=== PATIENT | male | born 1975 | race Caucasian/White ===

== ENCOUNTER 2019-09-22 13:58 | Outpatient (RCR) | payer OTHER, SELFPAY ==
--- NOTE | 2019-09-22 14:59 | PTOPEVAL ---
Thank you for referring Simón Benitez to [facility]. Please review, sign, date and return this plan of care BETTY. I agree with and certify that the following plan of care is medically necessary. Referring Physician Date Admitting Provider: Attending Provider: Roxana Cabello, INSPECTOR BOILER Referring Provider: *PT Outpatient Evaluation Start: 09/22/19 14:08 Freq: Status: Active Protocol: Document 09/22/19 14:09 JUAN (Rec: 09/22/19 14:44 Radha [id number]) Therapy Assessment Status Assessment Status Assessment Status Evaluation Evaluation Information Problem Diagnosis lumbar spondylosis Onset 08/03/19 Additional Evaluation Detail oswestry = 54% Subjective Information patient reports he has been Query Text:As Reported By Patient/ having pain in the low back Family since around 2003. 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 he reports he has been having back pain ever since then. he reports he has not worked for years. he reports he has increased pain with walking long distances, lifting moderate to heavy objects, bending over repetitively. he reports he does have pain down the L LE that has been going on for 3-4 years. he reports he is starting to lose stability in the L LE. Prior Level of Function Comments Additional Prior Level of Function patient reports he has been Comments declining physically since his injury back in 2003. he reports worsening strength and mobility over the past few years. Pain Assessment Timing of Pain Assessment Timing of Pain Assessment Assessment Pain Scale Pain Scale Used Numeric (1 - 10) Self Report Pain Assessment Lower Back Reported Pain Level 2 Pain Description Stabbing,Tightness Pain Radiation Left Leg,Right Leg Pain Frequency Acute,Chronic,Continuous Lowest Pain Intensity 2 Greatest Pain Intensity 10 Pain Aggravating Factors Exercise/Activity,Lifting, Prolonged Position,Walking, Weight Bearing/Standing Pain Score Pain Score 2: Self Report Cervical and Lumbar ROM Lumbar R
--- NOTE | 2019-10-10 14:40 | PCPTNOTE ---
10/10/19-pt had to cancel this week secondary to no childcare. -
== END 2019-11-09 09:04 | disposition home or self-care (01) ==
LOC: CHSPT 13:58
PROVIDERS: PCP Nurse Practitioner Adult Health; Visit Provider Nurse Practitioner Adult Health
DX: M47.26 Other spondylosis with radiculopathy, lumbar region (principal)
CPT/HCPCS: 97014; 97110; 97161; G0283

== ENCOUNTER 2020-03-25 13:50 | Emergency (ER) | payer OTHER, SELFPAY ==
[2020-03-25 13:56] VITALS: BP 141/78; PULSE 67; RESP 18; TEMP 36.9; O2SAT 100
--- NOTE | 2020-03-25 13:59 | ED.WOUNDLAC ---
HPI - Wound/Laceration General Chief Complaint: Wound/Laceration Stated Complaint: cut to right thumb Time Seen by Provider: 03/25/20 13:59 Source: patient and RN notes reviewed History of Present Illness HPI narrative: Patient is a 44-year-old male who presents the urgent care with complaints of a laceration to the right thumb. 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 Patient states that the wood director of corporate sponsorships slipped and he is unsure of exactly where he hit the thumb. Patient denies cleaning the wound prior to arrival. States that he is not up-to-date on his tetanus. No other acute complaints or injuries. No acute distress noted. Patient aware of the plan of care. Some parts of this dictation were generated by voice recognition software and may contain typographical and/or grammatical inaccuracies. Related Data Home Medications Medication Instructions Recorded Confirmed amitriptyline 10 mg PO DAILY 03/25/20 03/25/20 amlodipine 10 mg PO DAILY 03/25/20 03/25/20 atenolol 03/25/20 baclofen mg 03/25/20 cyclobenzaprine mg 03/25/20 diazepam 03/25/20 03/25/20 diclofenac sodium PO 03/25/20 duloxetine mg PO 03/25/20 gabapentin 03/25/20 glimepiride mg 03/25/20 hydrochlorothiazide 03/25/20 hydroxyzine HCl 03/25/20 lisinopril 03/25/20 omeprazole 03/25/20 omeprazole 03/25/20 ropinirole mg 03/25/20 sitagliptin [Januvia] mg 03/25/20 testosterone cypionate mg 03/25/20 Allergies Allergy/AdvReac Type Severity Reaction Status Date / Time eucalyptus AdvReac Intermediate Verified 08/06/15 13:28 Bleach (Sodium Hypochlorite) AdvReac Unknown Verified 08/06/15 13:28 OTC NSAID AdvReac Unknown RACING Uncoded 09/19/14 16:32 HEART Review of Systems Review of Systems: Narrative: CONSTITUTIONAL: Denies fever, chills, or sweats. EYES: Denies visual changes, redness, or discharge. ENT: Denies rhinorrhea, congestion, sore throat, or otalgia. CARDIOVASCULAR: Denies chest pain, palpitations, or edema. RESPIRATORY: Denies cough or dyspnea. GASTROINTESTINAL: Denies abdominal pain, nausea, vomiting, or diarrhea. GENITOURINARY: Denies dysuria or hematuria. SKIN: Reports of a laceration to the right thumb MUSCULOSKELETAL: Denies back pain, joint pain, or myalgia. NEUROLOGIC: Denies headache, numbness, or weakness. All other systems reviewed are negative, except as documented in HPI. PMFSH Social History Social History Gender identity (if verbalized by the patient): Male Comments At the time of my signature, I reviewed and agree with the nursing past medical, surgical, social, and family history. There is no relevant family history pertinent to the patient complaint. Exam Narrative: Exam Narrative: GENERAL: This is a well-nourished, well-developed patient, in no apparent distress. HEAD: normocephalic, atraumatic. EYES: PERRL. Sclera clear/white. Vision is grossly intact. EARS: External ears normal NOSE: External nose normal with no obvious nasal discharge, nares without redness, no rhinorrhea. THROAT: Mucous membranes moist NECK: Neck supple SKIN: 1 cm linear noncomplicated puncture/laceration just proximal to the MCP of the right thumb. Bleeding controlled prior to arrival. Warm, intact with no suspicious lesions or rash, good texture and turgor. NEURO: awake, alert, and oriented to person, place and time. There were no obvious focal neurologic abnormalities. EXTREMITIES: No clubbing, cyanosis, or edema. Course Vital Signs Vital signs: Vital Signs Temperature 98.4 F 03/25/20 13:56 Pulse Rate 67 03/25/20 13:56 Respiratory Rate 18 03/25/20 13:56 Blood Pressure 141/78 H 03/25/20 13:56 Pulse Oximetry 100 03/25/20 13:56 Temperature 98.4 F 03/25/20 13:56 Pulse Rate 67 03/25/20 13:56 Respiratory Rate 18 03/25/20 13:56 Blood Pressure 141/78 H 03/25/20 13:56 Pulse Oximetry 100 03/25/20 13:56 Reviewed-patient is informed that they may have pre-hypertension o
[2020-03-25] MEDS: TETANUS,DIPHTHERIA,AC PERTUSSIS ADULT (0.5 ML) BOOSTRIX IM (14:22)
== END 2020-03-25 14:48 | disposition home or self-care (01) ==
PROVIDERS: Emergency Provider Nurse Practitioner Family; PCP Physician Assistant
DX: S61.011A Laceration without foreign body of right thumb without damage to nail, initial encounter (principal); X58.XXXA Exposure to other specified factors, initial encounter; Z23 Encounter for immunization; E78.00 Pure hypercholesterolemia, unspecified; I10 Essential (primary) hypertension; K21.9 Gastro-esophageal reflux disease without esophagitis; E11.9 Type 2 diabetes mellitus without complications
CPT/HCPCS: 12001; 90471; 90715; 99212; G0463

== ENCOUNTER 2020-05-27 16:21 | Outpatient (RCR) | payer OTHER, SELFPAY ==
--- NOTE | 2020-05-27 17:14 | PTOPEVAL ---
Thank you for referring Simón Benitez to [facility].? The patient is scheduled to be seen for therapy? ____x/week for ___ weeks. Please review, sign, date and return this plan of care BETTY. I agree with and certify that the following plan of care is medically necessary. Referring Physician Date Admitting Provider: Attending Provider: Roxana Cabello, HEAD ATHLETIC TRAINER Referring Provider: *PT Outpatient Evaluation Start: 05/27/20 16:37 Freq: Status: Active Protocol: Document 05/27/20 16:38 [facility] (Rec: 05/27/20 17:13 [facility] [id number]) Therapy Assessment Status Assessment Status Assessment Status Evaluation Outpatient Past Medical History Cardiovascular History Hx Hypercholesterolemia Yes Hx Hypertension Yes Gastrointestinal History Hx Gastroesophageal Reflux Disease Yes Musculoskeletal History Hx Back Pain Yes Hx Other Musculoskeletal Disorders Yes: neck pain Endocrine History Hx Diabetes Yes Reproductive History Hx Other Reproductive Disorders Yes: low testosterone Pain History Has Past Pain Affected Your Daily Life Yes Evaluation Information Problem Diagnosis cervicalgia Onset 05/22/20 Additional Evaluation Detail ndi = 48% functionally declined Subjective Information patient reports he has had Query Text:As Reported By Patient/ pain for years. he reports Family really noticing pain going back to 2014. he reports he has not been to work since 2016. he reports he does not do much at home daily. he reports mostly light home care such as dishes and cleaning up rooms. he reports he does care for his kids daily. he reports he has increased pain in the neck with looking down, being on the phone, reading, and sitting watching TV for too long. he reports lately he has had increased pain with laying on his L side in bed. he reports he has pain down the L arm. he reports having an order for X-ray outstanding , but he has not been able to have this done yet. Prior Level of Function Comments Additional Prior Level of Function he reports no specific injury. Comments he reports he was tough as a kid
--- NOTE | 2020-05-27 17:17 | PTOPEVAL ---
Thank you for referring Simón Benitez to [facility].? The patient is scheduled to be seen for therapy? ____x/week for ___ weeks. Please review, sign, date and return this plan of care BETTY. I agree with and certify that the following plan of care is medically necessary. Referring Physician Date Admitting Provider: Attending Provider: Roxana Cabello, CONTROL ROOM AGENT Referring Provider: *PT Outpatient Evaluation Start: 05/27/20 16:37 Freq: Status: Active Protocol: Document 05/27/20 16:38 [facility] (Rec: 05/27/20 17:13 [facility] [id number]) Therapy Assessment Status Assessment Status Assessment Status Evaluation Outpatient Past Medical History Cardiovascular History Hx Hypercholesterolemia Yes Hx Hypertension Yes Gastrointestinal History Hx Gastroesophageal Reflux Disease Yes Musculoskeletal History Hx Back Pain Yes Hx Other Musculoskeletal Disorders Yes: neck pain Endocrine History Hx Diabetes Yes Reproductive History Hx Other Reproductive Disorders Yes: low testosterone Pain History Has Past Pain Affected Your Daily Life Yes Evaluation Information Problem Diagnosis cervicalgia Onset 05/22/20 Additional Evaluation Detail ndi = 48% functionally declined Subjective Information patient reports he has had Query Text:As Reported By Patient/ pain for years. he reports Family really noticing pain going back to 2014. he reports he has not been to work since 2016. he reports he does not do much at home daily. he reports mostly light home care such as dishes and cleaning up rooms. he reports he does care for his kids daily. he reports he has increased pain in the neck with looking down, being on the phone, reading, and sitting watching TV for too long. he reports lately he has had increased pain with laying on his L side in bed. he reports he has pain down the L arm. he reports having an order for X-ray outstanding , but he has not been able to have this done yet. Prior Level of Function Comments Additional Prior Level of Function he reports no specific injury. Comments he reports he was tough as a kid
--- NOTE | 2020-07-15 17:55 | PTOPEVAL ---
Thank you for referring Simón Benitez to [facility].? The patient is scheduled to be seen for therapy? ____x/week for ___ weeks. Please review, sign, date and return this plan of care BETTY. I agree with and certify that the following plan of care is medically necessary. Referring Physician Date Admitting Provider: Attending Provider: Roxana Cabello, ELEMENTARY ESL TEACHER Referring Provider: *PT Outpatient Evaluation Start: 05/27/20 16:37 Freq: Status: Active Protocol: Document 07/15/20 16:41 [facility] (Rec: 07/15/20 17:54 [facility] [id number]) Therapy Assessment Status Assessment Status Assessment Status Discharge Outpatient Past Medical History Cardiovascular History Hx Hypercholesterolemia Yes Hx Hypertension Yes Gastrointestinal History Hx Gastroesophageal Reflux Disease Yes Musculoskeletal History Hx Back Pain Yes Hx Other Musculoskeletal Disorders Yes: neck pain Endocrine History Hx Diabetes Yes Reproductive History Hx Other Reproductive Disorders Yes: low testosterone Pain History Has Past Pain Affected Your Daily Life Yes Evaluation Information Problem Diagnosis cervicalgia Onset 05/22/20 Subjective Information Patient states that since the Query Text:As Reported By Patient/ beginning of therapy he is Family about 20% improved. He is still unable to read for a long time, look down at his phone, continues to have a stabbing pain in the neck. He has been wearing glasses which he feels he is not straining as hard to read in turn not causing as much neck strain. Patient states he is going to call and get back in with his MD soon but she has been out of town. Pain Assessment Timing of Pain Assessment Timing of Pain Assessment Pre-Treatment Pain Scale Pain Scale Used Numeric (1 - 10) Self Report Pain Assessment Lower Back Reported Pain Level 5 Neck Reported Pain Level 3 Greatest Pain Intensity 6 Pain Score Pain Score 5,3: Self Report Interventions Used Interventions Used By Clinicians Activity or ADL's,Education, Electrical Stimulation, Exercise,Heat,Traction Cervical and Lumbar ROM Cervical ROM Cervical Flexion (0-60) 40 Query Text:Active in Degrees Cervical Extension (0-70) 25 Query Text:Active in Degrees Cervical Lateral
== END 2020-07-15 17:30 | disposition home or self-care (01) ==
LOC: CHSPT 16:21
PROVIDERS: PCP Nurse Practitioner Adult Health; Visit Provider Nurse Practitioner Adult Health
DX: M54.2 Cervicalgia (principal)
CPT/HCPCS: 97012; 97014; 97110; 97140; 97161; G0283

== ENCOUNTER 2020-12-02 19:54 | Emergency (ER) | payer OTHER, SELFPAY ==
--- NOTE | 2020-12-02 20:03 | ED.WOUNDLAC ---
HPI - Wound/Laceration General Chief Complaint: Skin/Abscess/Foreign Body Stated Complaint: right knee lac Time Seen by Provider: 12/02/20 20:00 Source: patient, RN notes reviewed and old records reviewed Mode of arrival: ambulatory Limitations: no limitations History of Present Illness HPI narrative: 45 year old male presents to express care with complaint of laceration to his right knee which occurred at 1905 this evening. He states that he was helping a friend move a dryer and it slipped and hit his right knee causing laceration to the anterior aspect of knee. Patient presents with bandaid to his right knee with no acute bleeding noted He has starburst type of laceration noted to his right knee. Patient reports that his last tetanus was last year. Onset (ago): minute(s) (45) Extremity Location: Right: knee (anterior aspect) Place: other Patient tetanus UTD: Yes Context: accidental Associated symptoms: pain Treatments prior to arrival: bandage Related Data Home Medications Medication Instructions Recorded Confirmed amitriptyline 10 mg PO DAILY 03/25/20 12/02/20 amlodipine 10 mg PO DAILY 03/25/20 12/02/20 atenolol 50 mg PO DAILY 03/25/20 12/02/20 baclofen 10 mg PO DAILY 03/25/20 12/02/20 cyclobenzaprine 10 mg PO DAILY 03/25/20 12/02/20 duloxetine 60 mg PO DAILY 03/25/20 12/02/20 gabapentin 600 mg PO DAILY 03/25/20 12/02/20 glimepiride 4 mg PO DAILY 03/25/20 12/02/20 hydrochlorothiazide 25 mg PO DAILY 03/25/20 12/02/20 hydroxyzine HCl 25 mg PO DAILY 03/25/20 12/02/20 lisinopril 40 mg PO DAILY 03/25/20 12/02/20 omeprazole 40 mg PO DAILY 03/25/20 12/02/20 ropinirole 1 mg PO DAILY 03/25/20 12/02/20 sitagliptin [Januvia] 100 mg PO DAILY 03/25/20 12/02/20 insulin glargine [Basaglar KwikPen 30 unit SUBCUT HS 12/02/20 12/02/20 U-100 Insulin] insulin lispro 1 unit SUBCUT PRN PRN 12/02/20 12/02/20 lovastatin 20 mg PO HS 12/02/20 12/02/20 Allergies Allergy/AdvReac Type Severity Reaction Status Date / Time metformin Allergy Difficulty Verified 12/02/20 20:06 Breathing eucalyptus AdvReac Intermediate Rash Verified 12/02/20 20:05 Bleach (Sodium Hypochlorite) AdvReac Unknown resp Verified 12/02/20 20:05 OTC NSAID AdvReac Unknown RACING Uncoded 12/02/20 20:05 HEART Review of Systems Review of Systems: Narrative: CONSTITUTIONAL: Denies fever, chills, or sweats. EYES: Denies visual changes, redness, or discharge. ENT: Denies rhinorrhea, congestion, sore throat, or otalgia. CARDIOVASCULAR: Denies chest pain, palpitations, or edema. RESPIRATORY: Denies cough or dyspnea. GASTROINTESTINAL: Denies abdominal pain, nausea, vomiting, or diarrhea. GENITOURINARY: Denies dysuria or hematuria. SKIN: Denies rash or itching. MUSCULOSKELETAL: Denies back pain, joint pain, or myalgia. NEUROLOGIC: Denies headache, numbness, or weakness. PSYCHIATRIC: Denies anxiety or depression. All systems reviewed & are unremarkable except as noted in HPI and below PMFSH Past Medical History Medical History (Updated 12/03/20 @ 20:21 by Sara Reyes NP) Back pain Diabetes Hyperlipidemia Hypertension Neck pain Penile abnormality reconstruction surgery X2 Restless leg syndrome Surgical History Surgical History (Updated 12/03/20 @ 20:14 by Sara Reyes NP) History of surgery on arm reconstruction surgery related to glass Social History Social History (Updated 12/03/20 @ 20:20 by Sara Reyes NP) Smoking status: Smoker, status unknown Additional smoking assessment comments: reported 2014 1 pack daily for 20 years Alcohol intake: unknown Substance use: never Living arrangements: with family Gender identity (if verbalized by the patient): Male Comments At time of signature, agree with nursing past medical, surgical, social and family history. There is no relevant family history pertinent to the presenting complaint Exam Narrative: Exam Narrative: GENERAL: Well-appearing, well-nourished,obese, and in no ac
[2020-12-02 20:05] VITALS: BP 147/68; PULSE 69; RESP 20; TEMP 36.7; O2SAT 99
[2020-12-02 20:15] VITALS: BP 147/68; PULSE 69; RESP 20; TEMP 36.7; O2SAT 99
== END 2020-12-02 20:45 | disposition home or self-care (01) ==
PROVIDERS: Emergency Provider Registered Nurse; PCP Physician Assistant
DX: S81.011A Laceration without foreign body, right knee, initial encounter (principal); W20.8XXA Other cause of strike by thrown, projected or falling object, initial encounter; E11.9 Type 2 diabetes mellitus without complications; E78.5 Hyperlipidemia, unspecified; I10 Essential (primary) hypertension; G25.81 Restless legs syndrome
CPT/HCPCS: 12002; 99213; G0463

== ENCOUNTER 2021-02-20 07:59 | Emergency (ER) | payer OTHER, SELFPAY ==
[2021-02-20 08:05] VITALS: BP 131/84; PULSE 79; RESP 20; TEMP 36.6; O2SAT 98
--- NOTE | 2021-02-20 08:23 | ED.URI ---
HPI - URI/Sore Throat General Chief Complaint: Upper Respiratory Infection Stated Complaint: POSSIBLE PNEUMONIA Source: patient Mode of arrival: ambulatory History of Present Illness HPI Narrative: this is a 45-year-old gentleman with a history of smoking presents with a cough for the last 3 weeks with yellow mucus production with no shortness of breath no fever chills no nausea vomiting no chest pain or tightness, was sent by his provider for evaluation. O2 sats are fine the patient is afebrile vitals are stable. MD elicited complaint: cough Onset (ago): week(s) Consistency: constant Severity: mild Related Data Home Medications Medication Instructions Recorded Confirmed amitriptyline 10 mg PO DAILY 03/25/20 02/20/21 amlodipine 10 mg PO DAILY 03/25/20 02/20/21 atenolol 50 mg PO DAILY 03/25/20 02/20/21 baclofen 10 mg PO DAILY 03/25/20 02/20/21 cyclobenzaprine 10 mg PO DAILY 03/25/20 02/20/21 duloxetine 60 mg PO DAILY 03/25/20 02/20/21 gabapentin 600 mg PO DAILY 03/25/20 02/20/21 glimepiride 4 mg PO DAILY 03/25/20 02/20/21 hydrochlorothiazide 25 mg PO DAILY 03/25/20 02/20/21 hydroxyzine HCl 25 mg PO DAILY 03/25/20 02/20/21 lisinopril 40 mg PO DAILY 03/25/20 02/20/21 omeprazole 40 mg PO DAILY 03/25/20 02/20/21 ropinirole 1 mg PO DAILY 03/25/20 02/20/21 sitagliptin [Januvia] 100 mg PO DAILY 03/25/20 02/20/21 insulin glargine [Basaglar KwikPen 30 unit SUBCUT 12/02/20 02/20/21 U-100 Insulin] insulin lispro 1 unit SUBCUT PRN PRN 12/02/20 02/20/21 lovastatin 20 mg PO HS 12/02/20 02/20/21 Allergies Allergy/AdvReac Type Severity Reaction Status Date / Time metformin Allergy Difficulty Verified 12/02/20 20:06 Breathing eucalyptus AdvReac Intermediate Rash Verified 12/02/20 20:05 Bleach (Sodium Hypochlorite) AdvReac Unknown resp Verified 12/02/20 20:05 OTC NSAID AdvReac Unknown RACING Uncoded 12/02/20 20:05 HEART Review of Systems Review of Systems: All systems reviewed & are unremarkable except as noted in HPI and below PMFSH Past Medical History Medical History Back pain Diabetes Hyperlipidemia Hypertension Neck pain Penile abnormality reconstruction surgery X2 Restless leg syndrome Surgical History Surgical History History of surgery on arm reconstruction surgery related to glass Social History Social History Smoking status: Smoker, status unknown Additional smoking assessment comments: reported 2014 1 pack daily for 20 years Alcohol intake: unknown Substance use: never Gender identity (if verbalized by the patient): Male Exam Const: General: no acute distress Orientation/consciousness: patient oriented x3 HENMT: Head: normal to inspection Eyes: Conjunctivae: conjunctivae normal Pupils: Equal, round and reactive pupils present Neck: Neck: normal visual inspection, no lymphadenopathy and no meningeal signs Chest: Chest palpation & inspection: normal inspection of the chest Resp: Effort & Inspection: normal respiratory effort Auscultation: clear to auscultation bilaterally Cardio: Rate: regular rate Rhythm: regular rhythm GI: GI Palp: Yes Soft to palpation Back/Spine/Pelvis: Back: no CVA tenderness Skin: General skin exam: normal color Rashes: no rashes Neuro: General: patient oriented x3 Extrem: General: normal to inspection and no pedal edema Psych: Mental Status: mental status grossly normal Affect: normal affect Course Course Emergency Course: patient doing well advised to take medicine that was prescribed. Critical Care Time Critical Care Time Critical Care Time: No Discharge Plan Discharge Clinical Impression: Bronchitis Patient Disposition: Home, Self-Care Condition: Stable Instructions: Antibiotic Form, Acute Bronchitis (ED) Prescriptions: New azithromycin
[2021-02-20 08:34] VITALS: BP 131/84; PULSE 79; RESP 20; TEMP 36.6; O2SAT 98
== END 2021-02-20 08:34 | disposition home or self-care (01) ==
PROVIDERS: Emergency Provider Emergency Medicine; PCP Physician Assistant
DX: J40 Bronchitis, not specified as acute or chronic (principal)
CPT/HCPCS: 99283

== ENCOUNTER 2021-06-29 04:58 | Emergency (ER) | payer OTHER, SELFPAY ==
[2021-06-29 05:15] VITALS: BP 163/92; PULSE 73; RESP 18; TEMP 36.7; O2SAT 98
--- NOTE | 2021-06-29 05:30 | ED.EAR ---
HPI - Ear Problem General Chief complaint: Ear Stated complaint: RIGHT EAR PAIN Time Seen by Provider: 06/29/21 05:30 Source: patient Limitations: no limitations History of Present Illness HPI Narrative: This is a 45-year-old gentleman that presents with right ear pain and bloody discharge was feeling pressure earlier today was taking Mucinex and at about 4 a.m. in the morning felt an intense pain and and started to have a bloody discharge from his right ear canal. Otherwise he has nasal congestion with no fever chills. MD Complaint: ear pain Location: right ear Duration: constant Severity: moderate Relieving factors: nothing Exacerbating factors: nothing Discharge from ear: Reports yes - bloody Related Data Home Medications Medication Instructions Recorded Confirmed amitriptyline 10 mg PO DAILY 03/25/20 06/29/21 amlodipine 10 mg PO DAILY 03/25/20 06/29/21 atenolol 50 mg PO DAILY 03/25/20 06/29/21 baclofen 10 mg PO DAILY 03/25/20 06/29/21 cyclobenzaprine 10 mg PO DAILY 03/25/20 06/29/21 duloxetine 60 mg PO DAILY 03/25/20 06/29/21 gabapentin 600 mg PO DAILY 03/25/20 06/29/21 glimepiride 4 mg PO DAILY 03/25/20 06/29/21 hydrochlorothiazide 25 mg PO DAILY 03/25/20 06/29/21 hydroxyzine HCl 25 mg PO DAILY 03/25/20 06/29/21 lisinopril 40 mg PO DAILY 03/25/20 06/29/21 omeprazole 40 mg PO DAILY 03/25/20 06/29/21 ropinirole 1 mg PO DAILY 03/25/20 06/29/21 sitagliptin [Januvia] 100 mg PO DAILY 03/25/20 06/29/21 insulin glargine [Basaglar KwikPen 30 unit SUBCUT 12/02/20 06/29/21 U-100 Insulin] insulin lispro 1 unit SUBCUT PRN PRN 12/02/20 06/29/21 lovastatin 20 mg PO 12/02/20 06/29/21 Allergies Allergy/AdvReac Type Severity Reaction Status Date / Time metformin Allergy Difficulty Verified 12/02/20 20:06 Breathing eucalyptus AdvReac Intermediate Rash Verified 12/02/20 20:05 Bleach (Sodium Hypochlorite) AdvReac Unknown resp Verified 12/02/20 20:05 OTC NSAID AdvReac Unknown RACING Uncoded 12/02/20 20:05 HEART Review of Systems Review of Systems: All systems reviewed & are unremarkable except as noted in HPI and below PMFSH Past Medical History Medical History Back pain Diabetes Hyperlipidemia Hypertension Neck pain Penile abnormality reconstruction surgery X2 Restless leg syndrome Surgical History Surgical History History of surgery on arm reconstruction surgery related to glass Social History Social History Smoking status: Smoker, status unknown Additional smoking assessment comments: reported 2015 1 pack daily for 20 years Alcohol intake: unknown Substance use: never Gender identity (if verbalized by the patient): Male Exam Const: General: no acute distress and alert Orientation/consciousness: patient oriented x3 HENMT: Ears: TM abnormal ( Ruptured eardrum on the right with a bloody discharge) Eyes: Conjunctivae: conjunctivae normal Pupils: Equal, round and reactive pupils present Neck: Neck: normal visual inspection Chest: Chest palpation & inspection: normal inspection of the chest Resp: Effort & Inspection: normal respiratory effort Auscultation: clear to auscultation bilaterally Cardio: Rate: regular rate Rhythm: regular rhythm GI: Auscultation: normal bowel sounds Skin: General skin exam: normal color Rashes: no rashes Neuro: General: patient oriented x3 and moves all extremities Extrem: General: normal to inspection and no pedal edema Psych: Mental Status: mental status grossly normal Course Course Emergency Course: patient having pain and IM Toradol 60mg would was administered. Vital Signs Vital signs: Vital Signs Temperature 36.7 C 06/29/21 05:15 Pulse Rate 73 06/29/21 05:15 Respiratory Rate 18 06/29/21 05:15 Blood Pressure 163/92 H 06/29/21 05:15 Pulse Oximetry
[2021-06-29] MEDS: KETOROLAC (*BKC) 60 MG/2 ML VIAL IM (05:43)
[2021-06-29 06:00] VITALS: BP 162/92; PULSE 73; RESP 18; TEMP 36.7; O2SAT 98
== END 2021-06-29 06:03 | disposition home or self-care (01) ==
PROVIDERS: Emergency Provider Emergency Medicine; PCP Physician Assistant
DX: H72.91 Unspecified perforation of tympanic membrane, right ear (principal)
CPT/HCPCS: 96372; 99283; J1885